=== PATIENT | female | born 1975 | race Asian ===

== ENCOUNTER 2019-04-16 20:37 | Emergency (ER) | payer OTHER, SELFPAY ==
[2019-04-16 20:47] VITALS: BP 160/88; PULSE 73; RESP 14; TEMP 36.3; O2SAT 99
--- NOTE | 2019-04-16 20:50 | DI.RAD.S_ITS ---
PROCEDURE: XR HAND LT MIN 3V INDICATIONS: crush injury lt hand TECHNIQUE: 3 views of the hand(s) acquired. COMPARISON: None. FINDINGS: Bones: No acute fractures or dislocations. Old injury involving the ulnar styloid tip is seen with well-corticated bony fragment. Carpal bones are normally aligned. No suspicious bony lesions. Soft tissues: No suspicious soft tissue calcifications. IMPRESSION: No gross acute left hand fracture or dislocation. Old injury involving the ulnar styloid tip. Dictated by: Rhett Rosado M.D. on 04/16/2019 at 21:27 Approved by: Rhett Rosado M.D. on 04/16/2019 at 21:29
[2019-04-16 22:10] VITALS: BP 160/88; PULSE 73; RESP 16; O2SAT 100
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
[2019-04-16] MEDS: TET,DIPH,PERTUSS(ACELL),VAC/PF 0.5 ML SYRINGE IM (23:30)
[2019-04-16 23:46] VITALS: BP 149/90; PULSE 64; RESP 16; O2SAT 100
--- NOTE | 2019-04-17 00:27 | PC.NURSE ---
Nonadhesive drsg applied left hand,secured with Gerry & tape.CMS good to fingers following application.
== END 2019-04-17 00:10 | disposition home or self-care (01) ==
PROVIDERS: Emergency Provider Emergency Medicine
DX: S60.512A Abrasion of left hand, initial encounter (principal); S61.412A Laceration without foreign body of left hand, initial encounter; W19.XXXA Unspecified fall, initial encounter; Z23 Encounter for immunization
CPT/HCPCS: 12001; 73130; 90471; 99283; 90715